=== PATIENT | female | born 1970 | race Caucasian/White ===

== ENCOUNTER 2019-12-19 18:12 | Emergency (ER) | payer OTHER ==
[2019-12-19] MEDS ORDERED: BACITRACIN ZINC OINTMENT 15 GM TP ONE (18:32)
[2019-12-19] MEDS ORDERED: ACETAMINOPHEN 325 MG TABLET PO ONE (18:32)
[2019-12-19] MEDS ORDERED: DIPH/PERTUSS(ACELL)/TETANUS VAC/PF 0.5 ML SYR (>=10YO) IM ONE (18:32)
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
[2019-12-19] MEDS ORDERED: CYCLOBENZAPRINE HCL 10 MG TABLET PO ONE (18:49)
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
--- NOTE | 2019-12-19 19:25 | RADIOLOGY REPORT (SQ) ---
EXAM DESCRIPTION: HIP LEFT AP/LATERAL IMAGES COMPLETED DATE/TIME: 12/19/2019 7:03 pm REASON FOR STUDY: injury COMPARISON: None. NUMBER OF VIEWS: Two views. TECHNIQUE: AP pelvis and additional frog legview of the left hip. LIMITATIONS: None. FINDINGS: MINERALIZATION: Normal. LEFT HIP: No fracture or dislocation. No worrisome bone lesions. RIGHT HIP: No fracture or dislocation. No worrisome bone lesions. Limited views. PUBIS AND ISCHIUM: No fracture. PELVIS: No fracture. SACRUM: No fracture or dislocation. No worrisome bone lesions. LOWER LUMBAR SPINE: No fracture or dislocation. No worrisome bone lesions. No significant disc disea se. SOFT TISSUES: No findings. OTHER: No other significant finding. IMPRESSION: NEGATIVE STUDY OF THE LEFT HIP AND PELVIS. NO RADIOGRAPHIC EVIDENCE OF ACUTE INJURY. TECHNICAL DOCUMENTATION: JOB ID: [id number] 2010 [employer]- All Rights Reserved Reading location - IP/workstation name: [email or web address]
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
[2019-12-19 20:40] VITALS: BP 168/84
--- NOTE | 2019-12-19 21:02 | EKG REPORT ---
SEVERITY:- OTHERWISE NORMAL ECG - SINUS TACHYCARDIA : Confirmed by: Franny Santillan 19-Dec-2019 21:01:24
== END 2019-12-19 20:35 | disposition home or self-care (01) ==
LOC: ER 18:12
DX: S16.1XXA Strain of muscle, fascia and tendon at neck level, initial encounter (principal); T22.112A Burn of first degree of left forearm, initial encounter; S09.90XA Unspecified injury of head, initial encounter; S20.219A Contusion of unspecified front wall of thorax, initial encounter; M25.552 Pain in left hip; V43.52XA Car driver injured in collision with other type car in traffic accident, initial encounter; W22.11XA Striking against or struck by driver side automobile airbag, initial encounter; M50.30 Other cervical disc degeneration, unspecified cervical region; M47.812 Spondylosis without myelopathy or radiculopathy, cervical region; R00.0 Tachycardia, unspecified; Z23 Encounter for immunization
CPT/HCPCS: 70450; 71250; 72125; 81025; 90471; 90715; 93005; 93010; 99285; J3490